=== PATIENT | female | born 1965 | race Caucasian/White ===

== ENCOUNTER 2024-08-24 07:12 | Emergency (ER) | payer OTHER, SELFPAY ==
[2024-08-24 07:12] VITALS: BP 138/94; PULSE 78; RESP 21; TEMP 36.9; O2SAT 99; BMI 20.2
--- NOTE | 2024-08-24 07:15 | RAD_ITS ---
STUDY: X-RAY CHEST REASON FOR EXAM: Female, 59 years old. Chest pain TECHNIQUE: Single AP portable view of the chest. COMPARISON: None. FINDINGS: EKG electrodes are seen. Hyperinflation. The lungs are clear. There is no demonstrated pleural abnormality. Normal size heart. Normal mediastinum and arturo. Normal visualized pulmonary arteries. Normal visualized aortic arch and descending thoracic aorta. Normal visualized thoracic spine. Normal visualized ribs, clavicles, and shoulders. There is no demonstrated abnormality of the visualized soft tissue structures of the upper abdomen. RAD/Chest 1 View (Portable) IMPRESSION: Hyperinflation. The lungs are clear. Electronically Signed: Joshua Saavedra MD at 8:11 EST ,
[2024-08-24] MEDS: Aspirin 81 MG TAB.CHEW 324 MG PO (07:20)
--- NOTE | 2024-08-24 07:22 | ED.VIS.CHEST ---
HPI History of Present Illness Chief Complaint: Chest Pain Informant: patient Onset/Context/Timing Onset: Today Activity at onset: gradual Timing: Continuous Quality: Positive for Pressure Location: Substernal Maximum Severity: Mild Worsened By: Nothing Relieved By: Nothing Associated Symptoms: Negative for Nausea, Vomiting, Diaphoresis, Dyspnea, Cough, Fever, Lightheadedness, Acid Reflux or Palpitations Narrative Narrative: 59-year-old female no seen past medical history. Currently on no medications. States she has had palpitations her entire life. She has never had any cardiac disease. No prior heart catheterization or stress test. 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 Denies any nausea, vomiting, diarrhea or fever. No shortness of breath or diaphoresis. She has had no recent exertional chest pain or exertional shortness of breath. Patient does work outside other than noticing her age catching up with her workouts she has had no exertional symptoms. No history of DVT or PE or risk factors. Currently she is symptom-free. No chest pain. Prior Similar Symptoms: No Recent Illness/Hospitalization: No CVD Risk Factors: Negative for Hypertension, Diabetes, Family History 1' </=55 or Smoking PE Risk Factors: Negative for Recent Travel/Surgery, Recent Immobilization, Prior DVT or PE, Cancer or OCP + Smoking + >/=35 TAD Risk Factors: Negative for Marfan's Syndrome PFSH PFSH Medical History no medical history no medical history Home Medications ?Medication ?Instructions ?Recorded ?Last Taken ?Type NK 10/28/19 Unknown History Allergy/AdvReac Type Severity Reaction Status Date / Time Environmental Allergies: AdvReac Mild Rash Verified 08/24/24 07:13 Uncoded (metal) Social History Smoking Status: Former smoker ROS ROS ED ROS Narrative Recent URI resolved. Constitutional Constitutional ED: Denies chills Eyes Eyes: Reports none ENT ENT ED: Denies ear pain Cardiovascular Cardiovascular: Reports as per HPI, chest pain and other Details: No recent exertional chest pain or exertional dyspnea. Respiratory/Chest Respiratory/Chest: Denies dyspnea or dyspnea on exertion Gastrointestinal Gastrointestinal: Denies abdominal pain, diarrhea, nausea or vomiting Genitourinary Genitourinary ED: Denies dysuria Musculoskeletal Musculoskeletal: Denies arthralgias or back pain Integumentary Denies abscess Neurologic Neurologic: Denies headache(s) Psychiatric Psychiatric: Denies anxiety Endocrine Endocrinology: Denies cold intolerance Hematologic/Lymphatic Hematologic/Lymphatic: Denies easy bleeding Allergic/Immunologic Allergic/Immunologic ED: Denies mouth swelling or tongue swelling EXAM Physical Exam Narrative Exam Narrative: 59-year-old female no acute distress. Vital signs are stable afebrile. Pulse ox is 99% on room air no signs of hypoxia. H EENT exam normal. Pupils round reactive light. No facial droop. Normal speech. Neck nontender no JVD. Lungs clear to auscultation bilaterally. Heart regular rate and rhythm rate about 70 no murmur. Chest wall and ribs are nontender. There is no ecchymosis or bruising. No rash. There is no reproducible chest wall pain. Abdomen is soft and nontender. Normal bowel sounds no peritoneal signs. Nondistended. Moving all 4 extremities. Calves are nontender without edema. Normal strength both upper and lower extremities. Equal and symmetrical radial pulses. Back nontender. Neurologically patient is awake and alert. No focal motor deficits. Answering questions following commands. She is sitting upright in bed. No distress. Const Vital Signs: 08/24/24 07:12 08/24/24 07:12 08/24/24 07:15 Temperature 98.4 F Temperature Source Oral Pulse Rate 78 Respiratory Rate 21 H Respiratory Effort Normal Non-Labored Blood Pressure 138/94 H Blood Pressure Mean 108 Pulse Ox 99 Oxygen Delivery Method Room Air Room Air 08/24/24 08:12 08/24/24 09:00 08/24/24 10:00 Temperature Temperature Source Pulse Rate 79 60 56 L Respiratory Rate 16 18 20 H Respiratory Effort Blood Pressure 115/81 H 119/96 H 118/81 H Blood Pressure Mean 92 103 93 Pulse Ox 99 99 97 Oxygen Delivery Method Room Air Room Air Room Air Positive well nourished and well developed; Negative for obese, cachectic, contractures or unkempt General Appearance ED: well developed and NAD; Negative for unkempt, cachectic, contractures or pallor Nutritional Appearance: Negative for cachectic or obese HEENT Reports moist mucous membranes normocephalic and atraumatic Eyes PERRL and EOMs intact bilaterally General Eye ED: Negative for pale conjunctiva Neck no lymphadenopathy, supple and no JVD General: Negative for tenderness Chest Wall inspection of chest normal and palpation of chest normal Chest: Negative for tenderness Resp normal respiratory effort and clear to auscultation bilaterally Effort and Inspection: Negative for respiratory distress Auscultation: Negative for rales, rhonchi or wheezes Cardio regular rate, regular rhythm, S1 normal heart sound, S2 normal heart sound and no murmurs Rate: Negative for bradycardia or tachycardic Rhythm: Negative for abnormal rhythm Peripheral Pulses: pulses 2+ throughout GI normal to inspection, nondistended, normoactive bowel sounds, soft to palpation, non-tender, non-distended and no masses Back/Spine no CVA tenderness and no thoracic nor lumbar tenderness General Back: Negative for CVA tenderness Cervical Spine: Negative for cervical spine tenderness Extremity normal to inspection General Extremety ED: Negative for edema, pulses abnormal or tenderness General Extremity: Negative for edema or pulses abnormal Neuro oriented x3 and CN's II-XII intact bilaterally Sensorium / Orientation: awake, alert, oriented to person, oriented to place and oriented to time; Negative for confused, lethargic or stuporous Motor Exam: strength 5/5 throughout Psych mental status grossly normal Appearance: Negative for unkempt Attitude: No agitated Mood & Affect: Negative for depressed, anxious or tearful Skin no rashes or lesions noted and no wounds General Skin Exam: Negative for jaundice or pallor Rashes: No rashes noted Trauma: Negative for abrasion, laceration or puncture Heart Score History: Slightly/Non-Suspicious ECG: Normal Age: >45 - <65 years Risk Factors: No Risk Factors Troponin: </= Normal Limit Score: 1 MDM MDM MDM Narrative Medical decision making narrative: 59-year-old female with nonexertional chest pain. Currently she is pain-free. No other associate symptoms. No history of hypertension nor diabetes. Non-smoker. No history or risk factors for DVT or PE. Presents with midsternal chest pain. Benign and normal exam. Will undergo cardiac workup. Her initial EKG is normal. Repeat exam patient is doing well at 7:56 AM. Symptom-free pain-free. We have gone over her initial test. Awaiting the 2-hour troponin. Repeat exam patient is doing well at 10:44 AM. Went over all of her test results. Given her exam and history I do not think she needs admission. All of her follow-up with her primary care physician for further evaluation. Patient is comfortable with the plan. History & Record Review Discussion w/independent historian: Patient Lab Data Attestation: I reviewed the patient's lab results. Lab results narrative: CBC shows a normal white count 9. H&H 13 and 42. Platelets 295. Chemistry panel shows a gap of 8 normal BUN of 13 creatinine 0.9. Glucose 103. Initial troponin 4. 2-hour troponins 3. Labs: Laboratory Results - last 24 hr 08/24/24 08/24/24 07:21 09:30 WBC 9.9 RBC 4.39 Hgb 13.9 Hct 42.4 MCV 96.6 MCH 31.7 MCHC 32.8 RDW Std Deviation 45.2 H RDW Coeff of Edgardo 12.7 Plt Count 295 MPV 9.7 Immature Gran % (Auto) 0.300 Neut % (Auto) 66.1 Lymph % (Auto) 24.3 [place] % (Auto) 5.5 Eos % (Auto) 3.5 Baso % (Auto) 0.3 Absolute Neuts (auto) 6.5 Absolute Lymphs (auto) 2.40 Nucleated RBC % 0 Sodium 140 Potassium 3.7 Chloride 106 Carbon Dioxide 26.0 Anion Gap 8 BUN 13 Creatinine 0.99 Estim Creat Clear Calc 57.50 Est GFR (MDRD) Af Amer 74 Est GFR (MDRD) Non-Af 62 BUN/Creatinine Ratio 13.2 Glucose 103 Calcium 9.7 Troponin I High Sens 4 3 Radiography Chest X-Ray - ED: 1 View, Read by ED Physician, Heart, Lungs, Mediastinum, Bony Structures and No Acute Disease Diagnostic Testing: Clinical Impression(s) from Imaging Studies Chest X-Ray 08/24/24 07:15 IMPRESSION: Hyperinflation. The lungs are clear. Electronically Signed: Joshua Saavedra MD at 8:11 EST , Chest x-ray, portable, single view, interpreted by myself shows a normal cardiac silhouette. Normal mediastinum and aorta. Normal lung hines. No acute abnormality. Rhythm Strip Rhythm Strip: Sinus Rhythm Rate: 66 Ectopy: None EKG Initial EKG: Attestation: I personally reviewed and interpreted this EKG as follows: Interpretation: Sinus Rhythm and No Acute Injury Pattern Comments: Normal sinus rhythm rate of 66 no acute signs of [place] nor ischemia nor dysrhythmia. No prior EKG for comparison. Prior: No Prior Discharge Plan Triage Chief Complaint: Chest Pain ED Provider: Jacob Kiran Dx/Rx/DC Orders Clinical Impression: Chest pain of uncertain etiology Instructions: ED Chest Pain, Uncertain Cause Prescriptions: No Action NK Primary Care Provider: Coleman Dahl Referrals: Coleman Dahl MD [Primary Care Provider] - As soon as possible Activity Restrictions/Additional Instructions: Your test today look very good. Both heart enzymes were normal. As was your EKG and chest x-ray. Follow-up with your primary care physician for further evaluation. Discussed with them possible stress testing. Obviously if you are feeling worse return. Print Language: [place]atian Disposition Disposition: Home, Self Care
[2024-08-24 07:29] LABS: Absolute Neutrophil Count 6.5 X10^3/uL (2.0-7.7); Basophil# 0.03 X10^3/uL; Basophil% 0.3 % (0-1); Eosinophil# 0.35 X10^3/uL; Eosinophils% 3.5 % (0-5); Hematocrit 42.4 % (37-47); Hemoglobin 13.9 g/dL (12.0-15.0); Lymphocyte % 24.3 % (19-41); Mean Corp Hgb Conc 32.8 g/dL (32-36); Mean Corpuscular Hgb 31.7 pg (27.0-32.0); Mean Corpuscular Volume 96.6 fL (81-99); Mean Platelet Vol. 9.7 fl (6.2-12.0); Monocyte# 0.54 X10^3/uL; Monocyte% 5.5 % (0-10); NRBC Flagged by Analyzer 0 % (0-5); Neutrophil # 6.53 X10^3/uL (2.7-7.7); Neutrophil % 66.1 % (47-70); Platelet Count 295 K/mm3 (150-450); RBC Distribution Width CV 12.7 % (11.6-14.6); RBC Distribution Width SD 45.2 fl (35.1-43.9); Red Blood Count 4.39 M/mm3 (4.2-5.4); White Blood Count 9.9 K/mm3 (4.4-11.0)
[2024-08-24 07:45] LABS: Anion Gap 8 (5-15); BUN 13 mg/dL (7-18); BUN/Creat Ratio 13.2 RATIO (10-20); Calcium,Total 9.7 mg/dL (8.5-10.1); Chloride 106 mmol/L (98-107); Creatinine, Serum 0.99 mg/dL (0.55-1.02); EST Glomerular Filtration Rate 62 mL/min (>60); Est Glom Filt Rate - Afr Amer 74 mL/min (>60); Glucose 103 mg/dL (74-106); Potassium 3.7 mmol/L (3.5-5.1); Sodium Level 140 mmol/L (136-145); Troponin-I HS (w/2H Reflex) 4 pg/mL (3.0-54.0)
[2024-08-24 08:12] VITALS: BP 115/81; PULSE 79; RESP 16; O2SAT 99
[2024-08-24 09:00] VITALS: BP 119/96; PULSE 60; RESP 18; O2SAT 99
[2024-08-24 09:24] LABS: Reflex Troponin-HS? (from REC) Y
[2024-08-24 10:00] VITALS: BP 118/81; PULSE 56; RESP 20; O2SAT 97
--- NOTE | 2024-08-24 10:01 | CM.ED ---
Social work Reason for referral: validation of AD Referral source: case find This acknowledged patient's need for advance directives to be validated. Patient stated patient's advance directives were completed and on file with a law firm. Patient stated patient's HCPOA is patient's , Dwayne. Patient stated desiring to have patient's daughter, Honey, listed as another emergency contact. Patient's daughters information added to [employer]. Patient received this business card and agreed to send or bring in advance directives to have on patient's chart at [facility]. No other needs identified at this time. Vesta Vences, STEAM POWERPLANT SUPERVISOR, SHRIMP PEELING MACHINE OPERATOR
[2024-08-24 10:25] LABS: Troponin-I HS 3 pg/mL (3.0-54.0)
[2024-08-24 10:52] VITALS: BP 118/81; PULSE 56; RESP 20; TEMP 36.8; O2SAT 97
== END 2024-08-24 10:53 | disposition home or self-care (01) ==
PROVIDERS: Emergency Provider Emergency Medicine; PCP Family Medicine; Visit Provider Emergency Medicine
DX: R07.89 Other chest pain (principal); Z87.891 Personal history of nicotine dependence